=== PATIENT | female | born 1990 | race Caucasian/White ===

== ENCOUNTER 2021-01-19 18:24 | Emergency (ER) | payer OTHER ==
[2021-01-19 19:00] LABS: BASOPHIL 0.4 % (0-2); EOSINOPHIL 0.8 % (0-5); HCT 42.4 % (37.0-47.0); HGB 13.6 g/dl (12.5-16.0); MCH 26.6 pg (25.0-31.0); MCHC 32.1 g/dL (32.0-36.0); MCV 82.8 fL (78.0-100.0); MONOCYTE 10.9 % (0-12); NEUTROPHIL 68.6 % (41-80); NRBC 0; PLT 331 K/uL (150-400); RBC 5.12 M/uL (4.20-5.40); RDW 12.5 % (11.5-14.0); WBC 12.1 K/uL (4.0-10.5)
[2021-01-19 19:22] LABS: POTASSIUM 3.6 mmol/L (3.5-5.1)
[2021-01-19 19:28] LABS: BILIRUBIN NEGATIVE (NEGATIVE); BLOOD TRACE-INTACT Ery/uL (NEGATIVE); COLOR YELLOW (YELLOW); GLUCOSE (U) NORMAL (NORMAL); LEUKOCYTES 1+ Leu/uL (NEGATIVE); NITRITE POSITIVE (NEGATIVE); PROTEIN TRACE (LOW) mg/dL (NEGATIVE)
[2021-01-19 19:30] LABS: CLARITY HAZY (CLEAR)
[2021-01-19 19:36] LABS: BACTERIA 3+; URINARY WBC 20-50
[2021-01-19] MEDS ORDERED: CEPHALEXIN500 M1 PO (20:25)
[2021-01-19] MEDS ORDERED: PYRIDIUM100 MG PO (20:25)
== END 2021-01-19 20:47 | disposition home or self-care (01) ==
LOC: FER 18:24
PROVIDERS: Emergency Medicine
DX: N30.00 Acute cystitis without hematuria (principal)
CPT/HCPCS: 36415; 80048; 81001; 83605; 85025; 87088; 87186; J0696; J2060; J7120

== ENCOUNTER 2021-06-10 14:19 | Emergency (ER) | payer OTHER ==
[~2021-06-10 14:19] MED LIST: CEPHALEXIN500 M1 PO; PYRIDIUM100 MG PO
[2021-06-10 16:07] LABS: BILIRUBIN NEGATIVE (NEGATIVE); BLOOD NEGATIVE Ery/uL (NEGATIVE); CLARITY HAZY (CLEAR); COLOR YELLOW (YELLOW); GLUCOSE (U) NORMAL (NORMAL); LEUKOCYTES NEGATIVE Leu/uL (NEGATIVE); NITRITE NEGATIVE (NEGATIVE); PROTEIN NEGATIVE (NEGATIVE); SPECIFIC GRAVITY >=1.030 (1.001-1.030); UROBILINOGEN 0.2 mg/dL (0.2-1.0)
[2021-06-10 16:17] LABS: BASOPHIL 0.5 % (0-2); EOSINOPHIL 1.3 % (0-5); HCT 42.5 % (37.0-47.0); HGB 13.8 g/dl (12.5-16.0); LYMPHOCYTE 19.2 % (15-48); MCH 28.2 pg (25.0-31.0); MCHC 32.5 g/dL (32.0-36.0); MCV 86.9 fL (78.0-100.0); MONOCYTE 6.1 % (0-12); MPV 8.8 fL (6.0-9.5); NEUTROPHIL 72.3 % (41-80); NRBC 0; PLT 287 K/uL (150-400); RBC 4.89 M/uL (4.20-5.40); WBC 12.4 K/uL (4.0-10.5)
[2021-06-10 16:53] LABS: ALBUMIN 3.8 g/dL (3.4-5.0); BILIRUBIN - TOTAL 0.3 mg/dL (0.2-1.0); BUN/CREAT RATIO (CALC) 13.6 RATIO; CREATININE 1.03 mg/dL (0.51-0.95); GLOBULIN (CALCULATION) 3.8 g/dL; POTASSIUM 3.9 mmol/L (3.5-5.1); TOTAL PROTEIN 7.6 g/dL (6.4-8.2)
[2021-06-10] MEDS ORDERED: BACLOFEN 10MG T10 MG PO (17:56)
[2021-06-10] MEDS ORDERED: NAPROXEN500 MG PO (17:57)
== END 2021-06-10 18:55 | disposition home or self-care (01) ==
LOC: FER 14:19
PROVIDERS: Nurse Practitioner Family
DX: R10.32 Left lower quadrant pain (principal); M54.5 Low back pain; E86.0 Dehydration; I10 Essential (primary) hypertension; Z79.899 Other long term (current) drug therapy
CPT/HCPCS: 36415; 80053; 81003; 85025; J1885; J2405; J7030; Q9967